=== PATIENT | male | born 1955 | race Caucasian/White ===

== ENCOUNTER 2024-07-30 13:20 | Inpatient (IN) ==
--- NOTE | 2024-07-30 13:39 | ED Triage Note ---
Date of Service July 30, 2024 Provider in Triage Author: Rachid Moise History of Present Illness This patient was briefly evaluated while in triage. An abbreviated physical exam was performed. This patient is a 69-year-old Male who presents to the ED for evaluation of not feeling well, nausea and vomiting. The patient was watching television approximately 1 hour ago when symptoms developed. Patient did have some coffee and a burrito. reports that he then got up to walk, and seemed to be favoring his left side. He reports weakness all over. Physical Exam CONSTITUTIONAL: Healthy and well nourished. Alert and oriented X 3. GCS 15. Patient is diaphoretic. HEENT: Normocephalic, atraumatic. Pupils equal, round and reactive. No facial droop. No scleral icterus or conjunctival injection. NECK: Full active range of motion without discomfort. LYMPHATICS: No cervical chain adenopathy. RESPIRATORY: Clear to auscultation bilaterally with no wheezing, crackles, rhonchi or stridor. CARDIOVASCULAR: Regular rate and rhythm with no murmurs, rubs or gallops. GASTROINTESTINAL: Bowel sounds present in all quadrants. No focal abdominal tenderness to palpation. MUSCULOSKELETAL: Full range of motion of all joints without discomfort. INTEGUMENTARY: No rash or other significant dermatologic conditions noted. HEMATOLOGIC: No ecchymosis or petechiae. PSYCHIATRIC: Positive affect. NEUROLOGIC: No focal neurologic deficits noted. Initial orders for labs and / or imaging were placed and patient was placed in the waiting area until a bed is available. Please see further documentation for the full ED course.
[2024-07-30] MEDS: SODIUM CHLORIDE 0.9% 1,000 ML IV ONE (14:26)
[2024-07-30] MEDS: LABETALOL HCL IV 5 MG/ML 20ML IV STA ×2 (14:27→16:08)
[2024-07-30] MEDS: PROMETHAZINE 6.25 MG/50.25 ML BAG IV STA (14:28)
[2024-07-30] MEDS: ONDANSETRON INJ 2 MG/ML 2 ML VIAL IV STA (14:28)
[2024-07-30 14:31] LABS: Basophils # (auto) 0.08 K/uL (0.00-0.20); Basophils % (auto) 0.6 %; Eosinophils # (auto) 0.01 K/uL (0.00-0.50); Eosinophils % (auto) 0.1 %; Hematocrit (blood only) 42.7 % (42.0-52.0); Hemoglobin 14.3 g/dl (14.0-18.0); Immature Granulocytes % (auto) 1.5 %; Lymphocytes # (auto) 1.94 K/uL (1.20-3.40); Lymphocytes % (auto) 14.1 %; Mean Corpuscular Hgb Conc 33.5 g/dL (32.0-36.0); Mean Corpuscular Volume 89.7 fL (80.0-100.0); Mean Platelet Volume 8.5 fL (9.4-12.4); Monocytes % (auto) 5.1 %; Neutrophils % (auto) 78.6 %; Platelet Count 399 K/uL (130-400); RDW Coefficient of Variation 12.7 % (11.5-14.5); RDW Standard Deviation 41.6 fL (36.4-46.3); Red Blood Count 4.76 M/uL (4.70-6.10); White Blood Count 13.73 K/ul (4.8-10.8)
--- NOTE | 2024-07-30 14:33 | Emergency Department Note ---
Impression & Plan Hypertensive urgency, Vomiting, Weakness, Leukocytosis ED Provider Note NAME: IRENE ARDON Jr AGE: 69 SEX: M : 1955 ARRIVES VIA: Walk-In INFORMANT: [Patient][] ED PROVIDER(S): [Alexis Mullen MD] CHIEF COMPLAINT: Weakness HISTORY OF PRESENT ILLNESS: The patient is a 69-year-old male who presents to the ER with diffuse weakness that began about an hour and a half or so ago. He had felt fine earlier. He complains of nausea and has been vomiting. He has no headache or abdominal pain. He is not short of breath. No one-sided weakness. He was sweating as per his . He also seemed unsteady with walking. The patient did have [employer], he wonders if he may have food poisoning. The patient's blood pressure was quite high in triage. He does take blood pressure medications, he states he took his blood pressure medication today already. He states his blood pressure is usually relatively well-controlled. No history of previous CVA. PMHx/PSHx/Social Hx: See Below PHYSICAL EXAM: GENERAL: Patient is in moderate distress, vomiting and sweating. HEENT: No acute trauma, normocephalic atraumatic, mucous membranes moist, no nasal congestion. NECK: No stridor, no adenopathy, no meningismus, trachea is midline. LUNGS: Clear to auscultation bilaterally, no wheeze, no rhonchi, breath sounds equal. HEART: Without murmurs gallops or rubs, regular rate and rhythm. ABDOMEN: Soft, nontender, no peritonitis. EXTREMITIES: No cyanosis, full range of motion of all the joints without pain or difficulty. NEUROLOGIC: Oriented x 3, no acute motor or sensory deficits, no focal weakness. No speech slur or extremity deficit. No facial droop. SKIN: No jaundice, mild diaphoresis. DIFFERENTIAL DIAGNOSIS: Uncontrolled hypertension, stroke, intracranial bleeding, electrolyte disturbance, foodborne or viral illness, LA, among others. EMERGENCY DEPARTMENT PROCEDURES: MEDICAL DECISION MAKING: There is a mild leukocytosis, this could be consistent with infection or just his vomiting. There is a normal hemoglobin and platelet count. No coagulopathy. No renal failure or significant electrolyte abnormality. No concerning liver enzyme elevation. ECG showed a sinus rhythm, no acute ST elevation. Cardiac enzyme testing x 1 was not consistent with acute cardiac injury. Brain CT showed no acute bleed or mass effect. A potential old infarct was noted. CT angio of the head and neck were performed. Patient did have an intracranial area of stenosis, there was no clot/obstruction seen within the head or neck. On my exam, the patient was vomiting and quite hypertensive. There were no focal neurologic deficits. Stroke scale as per nursing was 0. The patient was aggressively managed as he was very hypertensive. He did receive IV Lopressor, a second dose of IV Lopressor was given. He was given IV Phenergan and IV Zofran. He was given 1 L of IV saline. The patient does seem to be improved, his blood pressure is improved. He was able to walk to the bathroom without difficulty. The patient is in need of a hospital stay. He appears to be suffering from a hypertensive urgency/emergency. Acute stroke is still in the differential I suppose and further workup such as MRI is warranted. I do not believe the patient is not a candidate for TNK as his blood pressure is so poorly controlled. On top of the markedly elevated blood pressure, his stroke scale currently is 0. I spoke with the patient, I spoke with case management, the on-call hospitalist was consulted. Prior/Outside records/notes reviewed: None ECG per my interpretation: Indication was hypertension. The ECG shows a sinus rhythm with some PACs. The rate is 82. There is no acute ST elevation, no PVCs. The QTc is 479. Continuous Cardiac Monitoring per my interpretation: An order was placed for continuous cardiac monitoring. The monitor shows a rate of 80 with normal sinus rhythm. Imaging/x-ray results per my interpretation: Chronic Medical/Social conditions affecting care: History of hypertension, advanced age. Care/Management discussed with: Case management, the on-call hospitalist. Level of care consideration(s): After review of the information above and other included data: --I believe the patient requires escalation of care to admission Critical Care Note: I have personally spent 41 minutes of critical care time in the direct management of this patient. This includes bedside care, interpretation of diagnostic studies, and testing, discussion with consultants, patient, and family members, and other required patient management activities. This 41 minutes is in excess of all separately billable procedures. DISPOSITION: Admission Past Med/Surg History Problem List Leukocytosis (Acute) Weakness (Acute) Vomiting (Acute) Hypertensive urgency (Acute) Hypertensive emergency Medical History HTN (hypertension) Surgical History (Updated 07/30/24 @ 18:54 by MAGGY Zavala) History of right hip replacement Social History Smoking Status: Unknown if ever smoked Hx Alcohol Use: Yes Alcohol type: beer Hx Substance Use: No Preferred Language: Burmese Communication Ability: Effective Field Nurse Required: No Beliefs That Will Affect Care: None Current Living Situation: Spouse Other Information That Helps Us Care for You: No Feels Safe at Home: Yes Safety Concerns: Feels Safe At This Time Assistive Devices: Glasses Allergies Allergies Allergy/AdvReac Type Severity Reaction Status Date / Time animal dander Allergy Severe Sneezing Unverified 07/30/24 17:15 Home Meds Home Medications Medication Instructions Recorded Confirmed Diatomaceous Earth 1 cap PO DAILY 07/30/24 07/30/24 amlodipine 5 mg tablet 5 mg PO QAM 07/30/24 07/30/24 Results & Data (ED) Vital Signs Vital Signs - 24 hr 07/30/24 13:37 07/30/24 14:04 07/30/24 14:27 Temperature 36.6 C Temperature Source Oral Pulse Rate 94 H 99 H 64 Pulse Rate [Right Finger] Respiratory Rate 20 Respiratory Effort / Characteristics Non-Labored Spontaneous Respiratory Depth Normal Respiratory Pattern Regular Blood Pressure 230/102 H 215/120 H Blood Pressure [Right Arm] Blood Pressure Mean 144 Blood Pressure Mean [Right Arm] Pulse Oximetry 93 Oxygen Delivery Method Room Air Sepsis Recent Fever Within 48 Hours No Sepsis New/Unexplained Change in Mental Status N/A Sepsis Action Taken by Nursing No Action Required 07/30/24 14:52 07/30/24 15:45 07/30/24 16:33 Temperature Temperature Source Pulse Rate 78 Pulse Rate [Right Finger] 94 H 76 Respiratory Rate 14 12 Respiratory Effort / Characteristics Non-Labored Spontaneous Non-Labored Spontaneous Respiratory Depth Normal Normal Respiratory Pattern Blood Pressure 174/95 H Blood Pressure [Right Arm] 178/118 H 194/114 H Blood Pressure Mean Blood Pressure Mean [Right Arm] 138 140 Pulse Oximetry 98 98 Oxygen Delivery Method Room Air Room Air Sepsis Recent Fever Within 48 Hours Sepsis New/Unexplained Change in Mental Status Sepsis Action Taken by Nursing 07/30/24 17:10 Temperature Temperature Source Pulse Rate Pulse Rate [Right Finger] 78 Respiratory Rate 14 Respiratory Effort / Characteristics Non-Labored Spontaneous Respiratory Depth Normal Respiratory Pattern Regular Blood Pressure Blood Pressure [Right Arm] 192/93 H Blood Pressure Mean Blood Pressure Mean [Right Arm] 126 Pulse Oximetry 96 Oxygen Delivery Method Room Air Sepsis Recent Fever Within 48 Hours Sepsis New/Unexplained Change in Mental Status Sepsis Action Taken by [facility] Medications Current Medication List: was personally reviewed by me Laboratory Data Attestation: I reviewed the patient's lab results. 07/30/24 13:54 07/30/24 13:54 Lab Results 07/30/24 Range/Units 13:54 WBC 13.73 H (4.8-10.8) K/ul RBC 4.76 (4.70-6.10) M/uL Hgb 14.3 (14.0-18.0) g/dl Hct 42.7 (42.0-52.0) % MCV 89.7 (80.0-100.0) fL MCH 30.0 (25.0-34.0) pg MCHC 33.5 (32.0-36.0) g/dL RDW Std Deviation 41.6 (36.4-46.3) fL RDW Coeff of Mulu 12.7 (11.5-14.5) % Plt Count 399 (130-400) K/uL MPV 8.5 L (9.4-12.4) fL Immature Gran % (Auto) 1.5 % Neut % (Auto) 78.6 % Lymph % (Auto) 14.1 % [place] % (Auto) 5.1 % Eos % (Auto) 0.1 % Baso % (Auto) 0.6 % Neut # (Auto) 10.80 H (1.40-6.50) K/uL Lymph # (Auto) 1.94 (1.20-3.40) K/uL [place] # (Auto) 0.70 H (0.11-0.59) K/uL Eos # (Auto) 0.01 (0.00-0.50) K/uL Baso # (Auto) 0.08 (0.00-0.20) K/uL Immature Gran # (Auto) 0.20 (0.01-0.20) K/uL PT 10.5 (9.0-12.0) Seconds INR 1.0 (0.9-1.1) APTT 23 (21-31) Seconds PTT Ratio 0.9 Sodium 138 (136-145) mmol/L Potassium 3.7 (3.5-5.1) mmol/L Chloride 103 (98-107) mmol/L Carbon Dioxide 24 (21-32) mmol/L Anion Gap 11 (3-11) BUN 17 (6-23) mg/dl Creatinine 0.95 (0.6-1.4) mg/dl Est Cr Clr Drug Dosing 78.3 ml/min Est GFR ( Amer) 93.0 ml/min Est GFR (Non-Af Amer) 80.2 ml/min BUN/Creatinine Ratio 17.9 (10-20) Glucose 137 H (70-99(Fasting)) mg/dl Calcium 9.8 (8.6-10.3) mg/dl Magnesium 2.1 (1.7-2.4) mg/dl Total Bilirubin 0.4 (0.2-1.0) mg/dl AST 19 (13-39) U/L ALT 19 (7-52) U/L Alkaline Phosphatase 54 (34-104) U/L Troponin I High Sens 3.8 (0-20) pg/ml Total Protein 8.1 (6.0-8.3) gm/dl Albumin 4.9 (3.4-5.0) gm/dl Globulin 3.2 (2.5-4.0) gm/dl Albumin/Globulin Ratio 1.5 (0.9-2) Administered Medications Promethazine HCl (Phenergan) 6.25 mg in 50.25 mls @ 201 mls/hr IV Q6H PRN PRN Reason: Nausea And Vomiting - 2nd line Stop: 08/29/24 20:48 Last Infusion: 07/30/24 21:33 Dose: Infused Documented By: Admin: 07/30/24 21:12 Dose: 201 mls/hr Documented By: ARSH Sodium Chloride (Nss) 1,000 mls @ 80 mls/hr IV .[id number] CRISPIN Stop: 08/29/24 20:59 Last Admin: 07/30/24 21:08 Dose: 80 mls/hr Documented By: ARSH Ondansetron HCl (Ondansetron Inj 2 Mg/Ml 2 Ml Vial) 4 mg IV Q6H PRN PRN Reason: Nausea And Vomiting - 1st line Stop: 08/29/24 18:24 Last Admin: 07/30/24 18:52 Dose: 4 mg Documented By: CARMELO Rosuvastatin Calcium (Rosuvastatin Calcium 20 Mg Tab) 20 mg PO QAM CRISPIN Stop: 08/29/24 20:14 Last Admin: 07/30/24 21:46 Dose: 20 mg Documented By: RNC Discontinued Medications Aspirin (Aspirin 325 Mg Ectab) 325 mg PO NOW STA Stop: 07/30/24 20:10 Last Admin: 07/30/24 21:45 Dose: 325 mg Documented By: RNSaran Clonidine HCl (Clonidine Hcl 0.1 Mg Tab) 0.1 mg PO NOW ONE Stop: 07/30/24 17:31 Last Admin: 07/30/24 18:01 Dose: Not Given Documented By: CARMELO Hydralazine HCl (Hydralazine Hcl 20 Mg/Ml Vial) 10 mg IV NOW STA Stop: 07/30/24 17:31 Last Admin: 07/30/24 18:01 Dose: Not Given Documented By: CARMELO Hydralazine HCl (Hydralazine Hcl 20 Mg/Ml Vial) 5 mg IV NOW ONE Stop: 07/30/24 18:34 Last Admin: 07/30/24 18:54 Dose: 5 mg Documented By: CARMELO Promethazine HCl (Phenergan) 6.25 mg in 50.25 mls @ 201 mls/hr IV NOW STA Stop: 07/30/24 14:30 Last Infusion: 07/30/24 15:01 Dose: Infused Documented By: Admin: 07/30/24 14:28 Dose: 201 mls/hr Documented By: JOANNA Sodium Chloride (Nss) 1,000 mls @ 999 mls/hr IV .Q1H1M ONE Stop: 07/30/24 15:18 Last Infusion: 07/30/24 15:40 Dose: Infused Documented By: Admin: 07/30/24 14:26 Dose: 999 mls/hr Documented By: JOANNA Ioversol (Optiray 320 125ml) 118 ml IV ONCE ONE Stop: 07/30/24 15:17 Last Admin: 07/30/24 15:17 Dose: 118 ml Documented By: LAURIE Labetalol HCl (Labetalol Hcl Iv 5 Mg/Ml 20ml) 10 mg IV NOW STA Stop: 07/30/24 14:17 Last Admin: 07/30/24 14:27 Dose: 10 mg Documented By: JOANNA Labetalol HCl (Labetalol Hcl Iv 5 Mg/Ml 20ml) 10 mg IV NOW STA Stop: 07/30/24 16:05 Last Admin: 07/30/24 16:08 Dose: 10 mg Documented By: CARMELO Ondansetron HCl (Ondansetron Inj 2 Mg/Ml 2 Ml Vial) 4 mg IV NOW STA Stop: 07/30/24 14:17 Last Admin: 07/30/24 14:28 Dose: 4 mg Documented By: JOANNA Imaging Data Radiologist's Impression: Head CT 07/30/24 14:16 CT OF THE HEAD WITHOUT CONTRAST CLINICAL HISTORY: neuro deficit, acute stroke suspected COMPARISON STUDY: No previous studies for comparison. TECHNIQUE: Helical axial images of the head were obtained without IV contrast. Automated exposure control was utilized for the study. A dose lowering technique was utilized adhering to the principles of ALARA. FINDINGS: This study is mildly compromised by motion artifact. White matter hypodensities favor small vessel disease. No acute intracranial hemorrhage, midline shift or mass effect is present. There is a 1.1 cm hypodense focus within the left caudate body. The ventricular system is unremarkable. The basal cisterns are patent. No extra-axial collections are present. There are no findings to suggest acute dural sinus thrombosis or acute territorial infarct. No significant calvarial abnormalities are present. Visualized portions of the sinuses and mastoid air cells are clear. IMPRESSION: 1. No acute intracranial hemorrhage. No mass effect. 2. 1.1 cm hypodense focus within the left caudate body. This is suggestive of a small age indeterminate infarct. ACT 112: Negative or not required by law. Electronically signed by: Ruy He M.D. 07/30/2024 3:31 PM Head CTA 07/30/24 14:16 CTA ANGIOGRAPHY OF THE HEAD CLINICAL HISTORY: neuro deficit, acute stroke suspected COMPARISON STUDY: No previous studies for comparison. TECHNIQUE: Helical axial images of the head were obtained following uneventful intravenous administration of 118 cc of Optiray. Sagittal and coronal reconstructions were viewed as well as maximal intensity projections on an independent 3-D workstation. Automated exposure control was utilized for the study. A dose lowering technique was utilized adhering to the principles of ALARA. CT DOSE: 1980.43 mGy.cm FINDINGS: No acute intracranial hemorrhage, midline shift or mass effect is present. Ventricular system is normal. Basal cisterns are patent. There are no extra-axial collections. The bilateral M1, M2, A1 and A2 segments are patent. There is mild plaque within the cavernous carotids without stenosis. There is no large vessel occlusion. There is no intracranial aneurysm. Severe short segment stenosis of the left P2 segment is noted. IMPRESSION: 1. No large vessel occlusion. No intracranial aneurysm. 2. 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 No additional stenoses. ACT 112: Negative or not required by law. Electronically signed by: Ruy He M.D. 07/30/2024 3:37 PM Neck CTA 07/30/24 14:16 CT ANGIOGRAPHY OF THE NECK WITH CONTRAST CLINICAL HISTORY: neuro deficit, acute stroke suspected COMPARISON STUDY: No previous studies for comparison. Technique: CT angiography of the carotid and vertebral arteries was obtained using Optiray and 3D reconstruction on an independent workstation. NASCET criteria was utilized. Automated exposure control was utilized for the study. A dose lowering technique was utilized adhering to the principles of ALARA. Findings: Visualized portions of the lung apices are unremarkable. There is no cervical lymphadenopathy or cervical spine fracture. The bilateral common carotid, cervical internal carotid and vertebral arteries are patent. There is no stenosis or dissection within these vessels. There is minimal plaque within proximal bilateral internal carotid arteries. There is no aneurysm within the neck. Vertebral arteries are patent. IMPRESSION: No stenosis or dissection within the bilateral common carotid, cervical internal carotid or vertebral arteries. ACT 112: Negative or not required by law. Electronically signed by: Ruy He M.D. 07/30/2024 3:34 PM Discharge Plan Visit Data Chief Complaint: Weakness Stated Complaint: WEAK, DIZZY, NOT FEELING WELL OVERALL ED Provider: Alexis Mullen Discharge Problem: Hypertensive urgency, Vomiting, Weakness, Leukocytosis Patient Disposition: Admitted As Inpatient Condition: Serious Discharge Instructions Interventions: ED Discharge Assessment Last Done: 07/30/24 19:11 Discharge Problem: Vomiting Qualifiers: Vomiting type: unspecified Nausea presence: with nausea Qualified Code(s): R 11.2 - Nausea with vomiting, unspecified Leukocytosis Qualifiers: Leukocytosis type: unspecified Qualified Code(s): D72.829 - Elevated white blood cell count, unspecified
[2024-07-30 14:56] LABS: Albumin Globulin Ratio 1.5 (0.9-2); Albumin Level 4.9 gm/dl (3.4-5.0); BUN Creatinine Ratio 17.9 (10-20); Bilirubin,Total 0.4 mg/dl (0.2-1.0); Calcium 9.8 mg/dl (8.6-10.3); Creatinine Clr Calc Pharmacy 78.3 ml/min; Est GFR (Non-African American) 80.2 ml/min; Globulin 3.2 gm/dl (2.5-4.0); Magnesium 2.1 mg/dl (1.7-2.4); Potassium 3.7 mmol/L (3.5-5.1); Total Protein 8.1 gm/dl (6.0-8.3)
[2024-07-30 15:02] LABS: Troponin I High Sensitivity 3.8 pg/ml (0-20)
[2024-07-30 15:13] LABS: Partial Thromboplastin Ratio 0.9; Partial Thromboplastin Time 23 Seconds (21-31); Prothrombin Time 10.5 Seconds (9.0-12.0)
[2024-07-30] MEDS: OPTIRAY 320 125ml IV ONE (15:17)
--- NOTE | 2024-07-30 15:34 | CT Scan Report ---
CT OF THE HEAD WITHOUT CONTRAST CLINICAL HISTORY: neuro deficit, acute stroke suspected COMPARISON STUDY: No previous studies for comparison. TECHNIQUE: Helical axial images of the head were obtained without IV contrast. Automated exposure con trol was utilized for the study. A dose lowering technique was utilized adhering to the principles o f ALARA. FINDINGS: This study is mildly compromised by motion artifact. White matter hypodensities favor small vessel disease. No acute intracranial hemorrhage, midline shift or mass effect is present. There is a 1.1 cm hypodense focus within the left caudate body. The ventricular system is unremarkable. The ba slim cisterns are patent. No extra-axial collections are present. There are no findings to suggest acu te dural sinus thrombosis or acute territorial infarct. No significant calvarial abnormalities are pr esent. Visualized portions of the sinuses and mastoid air cells are clear. IMPRESSION: 1. No acute intracranial hemorrhage. No mass effect. 2. 1.1 cm hypodense focus within the left caudate body. This is suggestive of a small age indetermina te infarct. ACT 112: Negative or not required by law. Electronically signed by: Ruy He M.D. 07/30/2024 3:31 PM
--- NOTE | 2024-07-30 15:36 | CT Scan Report ---
CT ANGIOGRAPHY OF THE NECK WITH CONTRAST CLINICAL HISTORY: neuro deficit, acute stroke suspected COMPARISON STUDY: No previous studies for comparison. Technique: CT angiography of the carotid and vertebral arteries was obtained using Optiray and 3D rec onstruction on an independent workstation. NASCET criteria was utilized. Automated exposure control was utilized for the study. A dose lowering technique was utilized adhering to the principles of ALA RA. Findings: Visualized portions of the lung apices are unremarkable. There is no cervical lymphadenopat hy or cervical spine fracture. The bilateral common carotid, cervical internal carotid and vertebral arteries are patent. There is no stenosis or dissection within these vessels. There is minimal plaque within proximal bilateral internal carotid arteries. There is no aneurysm within the neck. Vertebral arteries are patent. IMPRESSION: No stenosis or dissection within the bilateral common carotid, cervical internal carotid or vertebral arteries. ACT 112: Negative or not required by law. Electronically signed by: Ruy He M.D. 07/30/2024 3:34 PM
--- NOTE | 2024-07-30 15:39 | CT Scan Report ---
CTA ANGIOGRAPHY OF THE HEAD CLINICAL HISTORY: neuro deficit, acute stroke suspected COMPARISON STUDY: No previous studies for comparison. TECHNIQUE: Helical axial images of the head were obtained following uneventful intravenous administr ation of 118 cc of Optiray. Sagittal and coronal reconstructions were viewed as well as maximal inten sity projections on an independent 3-D workstation. Automated exposure control was utilized for the study. A dose lowering technique was utilized adhering to the principles of ALARA. CT DOSE: 1980.43 mGy.cm FINDINGS: No acute intracranial hemorrhage, midline shift or mass effect is present. Ventricular syst em is normal. Basal cisterns are patent. There are no extra-axial collections. The bilateral M1, M2, A1 and A2 segments are patent. There is mild plaque within the cavernous carotids without stenosis. T here is no large vessel occlusion. There is no intracranial aneurysm. Severe short segment stenosis o f the left P2 segment is noted. IMPRESSION: 1. No large vessel occlusion. No intracranial aneurysm. 2. 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 No additional stenoses. ACT 112: Negative or not required by law. Electronically signed by: Ruy He M.D. 07/30/2024 3:37 PM
[2024-07-30] MEDS: hydrALAZINE HCL 20 MG/ML VIAL IV STA (18:01)
[2024-07-30] MEDS: cloNIDine HCL 0.1 MG TAB PO ONE (18:01)
[2024-07-30] MEDS: ONDANSETRON INJ 2 MG/ML 2 ML VIAL IV PRN (18:52)
[2024-07-30] MEDS: hydrALAZINE HCL 20 MG/ML VIAL IV ONE (18:54)
--- NOTE | 2024-07-30 19:02 | History & Physical Report ---
Date of Service July 30, 2024 Assessment & Plan (1) Hypertensive emergency: Plan: Admit to PCU Patient visiting from out of the area and presented for evaluation of nausea, vomiting, and generally not feeling well. BP on presentation 230/102, received Labetalol 10mg IV x [address] - 1.1 cm hypodense focus within the left caudate body. This is suggestive of a small age indeterminate infarct. Patient previously on amlodipine 5mg but stopped one month ago as he states his BP was "good" Due to possible CVA, goal BP 180 Brain MRI, echo Further BP management once brain MRI resulted Neuro consult DVT PROPHYLAXIS SCDs Patient seen in collaboration with Dr. Olivia. I spent a total of 75 minutes coordinating, documenting, and providing care for this patient excluding time spent in the performance of separately billed services. This included personally reviewing all current laboratories and imaging studies, medication reconciliation, outpatient chart review, and discussion with specialists. History of Present Illness Chief Complaint: Nausea, Vomiting, Generally Ill Primary Care Provider: NO PCP 69 year old male with PMH HTN, and other problems listed below who presented to the ED for evaluation of nausea, vomiting, and generally not feeling well. Patient is visiting from out of state. States that he was at his daughter's softball game this afternoon when he started to generally not feel well. He was diaphoretic. Upon arrival to the ED while in the waiting room, patient had several episodes of vomiting. He was found to be significantly hypertensive with BP 230/102. Patient denies chest pain and shortness of breath. No other recent illnesses, fevers, chills. He denies abdominal pain. No urinary symptoms. Head CT shows 1.1 cm hypodense focus within the left caudate body. This is suggestive of a small age indeterminate infarct. Patient was given labetalol 10 mg IV x 2 doses. He also received IVF, IV Zofran, IV promethazine. Allergies Allergy/AdvReac Type Severity Reaction Status Date / Time animal dander Allergy Severe Sneezing Unverified 07/30/24 17:15 Home Medications Medication Instructions Recorded Confirmed Type Diatomaceous Earth 1 cap PO DAILY 07/30/24 07/30/24 History amlodipine 5 mg tablet 5 mg PO QAM 07/30/24 07/30/24 History Past Med/Surg History Problem List (Updated 07/30/24 @ 22:40 by Alexis Mullen MD) Leukocytosis (Acute) Weakness (Acute) Vomiting (Acute) Hypertensive urgency (Acute) Hypertensive emergency Medical History (Updated 07/30/24 @ 22:40 by Alexis Mullen MD) HTN (hypertension) Surgical History (Updated 07/30/24 @ 18:54 by MAGGY Zavala) History of right hip replacement Social History Smoking Status: Unknown if ever smoked Hx Alcohol Use: Yes Alcohol type: beer Hx Substance Use: No Preferred Language: Bengali Communication Ability: Effective Irrigating Pump Operator Required: No Beliefs That Will Affect Care: None Current Living Situation: Spouse Other Information That Helps Us Care for You: No Feels Safe at Home: Yes Safety Concerns: Feels Safe At This Time Assistive Devices: Glasses Review of Systems Review of Systems: ROS per HPI, all other systems reviewed and negative Physical Exam Constitutional: WD/WN, vitals as above + ill appearing; no acute distress Eyes: PERRL, conjunctivae normal, anicteric sclerae ENMT: external ear and nose normal, oropharynx normal Respiratory: normal respiratory effort, lungs clear to auscultation Cardiovascular: Rate/Rhythm: regular rate and regular rhythm Vessels: normal peripheral pulses Extremities: no edema Gastrointestinal (Abdomen): normal bowel sounds, soft, nontender, no hepatosplenomegaly Musculoskeletal: no cyanosis or clubbing, extremities motor strength 5/5 Skin: no rashes, warm and dry Neurologic: PERRL, EOMI, accommodation nl, no face palsy, no dysarthria Psychiatric: Orientation: oriented x 3 eyes closed mostly throughout exam, provides short one word answers, arouses easily to verbal stimuli Results & Data Results & Data Vital Signs (Past 12 Hours) Vital Signs Temp Pulse Pulse Resp BP BP Pulse Ox 07/30/24 18:26 74 20 181/96 H 96 07/30/24 17:58 16 177/111 H 07/30/24 17:10 78 14 192/93 H 96 07/30/24 16:33 76 12 194/114 H 98 07/30/24 15:45 94 H 14 178/118 H 98 07/30/24 14:52 78 174/95 H 07/30/24 14:27 64 215/120 H 07/30/24 14:04 99 H 07/30/24 13:37 36.6 C 94 H 20 230/102 H 93 O2 Del Method 07/30/24 18:26 Room Air 07/30/24 17:58 Room Air 07/30/24 17:10 Room Air 07/30/24 16:33 Room Air 07/30/24 15:45 Room Air 07/30/24 14:52 07/30/24 14:27 07/30/24 14:04 07/30/24 13:37 Room Air Laboratory Results Short CBC 07/30/24 Range/Units 13:54 WBC 13.73 H (4.8-10.8) K/ul Hgb 14.3 (14.0-18.0) g/dl Hct 42.7 (42.0-52.0) % Plt Count 399 (130-400) K/uL BMP 07/30/24 13:54 Sodium 138 Potassium 3.7 Chloride 103 Carbon Dioxide 24 BUN 17 Creatinine 0.95 Glucose 137 H Calcium 9.8 Liver Function 07/30/24 Range/Units 13:54 Total Bilirubin 0.4 (0.2-1.0) mg/dl AST 19 (13-39) U/L ALT 19 (7-52) U/L Alkaline Phosphatase 54 (34-104) U/L Albumin 4.9 (3.4-5.0) gm/dl Diagnostic Findings Head CT 07/30/24 14:16 CT OF THE HEAD WITHOUT CONTRAST CLINICAL HISTORY: neuro deficit, acute stroke suspected COMPARISON STUDY: No previous studies for comparison. TECHNIQUE: Helical axial images of the head were obtained without IV contrast. Automated exposure control was utilized for the study. A dose lowering technique was utilized adhering to the principles of ALARA. FINDINGS: This study is mildly compromised by motion artifact. White matter hypodensities favor small vessel disease. No acute intracranial hemorrhage, midline shift or mass effect is present. There is a 1.1 cm hypodense focus within the left caudate body. The ventricular system is unremarkable. The basal cisterns are patent. No extra-axial collections are present. There are no findings to suggest acute dural sinus thrombosis or acute territorial infarct. No significant calvarial abnormalities are present. Visualized portions of the sinuses and mastoid air cells are clear. IMPRESSION: 1. No acute intracranial hemorrhage. No mass effect. 2. 1.1 cm hypodense focus within the left caudate body. This is suggestive of a small age indeterminate infarct. ACT 112: Negative or not required by law. Electronically signed by: Ruy He M.D. 07/30/2024 3:31 PM Head CTA 07/30/24 14:16 CTA ANGIOGRAPHY OF THE HEAD CLINICAL HISTORY: neuro deficit, acute stroke suspected COMPARISON STUDY: No previous studies for comparison. TECHNIQUE: Helical axial images of the head were obtained following uneventful intravenous administration of 118 cc of Optiray. Sagittal and coronal reconstructions were viewed as well as maximal intensity projections on an [employer] 3-D workstation. Automated exposure control was utilized for the study. A dose lowering technique was utilized adhering to the principles of ALARA. CT DOSE: 1980.43 mGy.cm FINDINGS: No acute intracranial hemorrhage, midline shift or mass effect is present. Ventricular system is normal. Basal cisterns are patent. There are no extra-axial collections. The bilateral M1, M2, A1 and A2 segments are patent. There is mild plaque within the cavernous carotids without stenosis. There is no large vessel occlusion. There is no intracranial aneurysm. Severe short segment stenosis of the left P2 segment is noted. IMPRESSION: 1. No large vessel occlusion. No intracranial aneurysm. 2. 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 No additional stenoses. ACT 112: Negative or not required by law. Electronically signed by: Ruy He M.D. 07/30/2024 3:37 PM Neck CTA 07/30/24 14:16 CT ANGIOGRAPHY OF THE NECK WITH CONTRAST CLINICAL HISTORY: neuro deficit, acute stroke suspected COMPARISON STUDY: No previous studies for comparison. Technique: CT angiography of the carotid and vertebral arteries was obtained using Optiray and 3D reconstruction on an independent workstation. NASCET criteria was utilized. Automated exposure control was utilized for the study. A dose lowering technique was utilized adhering to the principles of ALARA. Findings: Visualized portions of the lung apices are unremarkable. There is no cervical lymphadenopathy or cervical spine fracture. The bilateral common carotid, cervical internal carotid and vertebral arteries are patent. There is no stenosis or dissection within these vessels. There is minimal plaque within proximal bilateral internal carotid arteries. There is no aneurysm within the neck. Vertebral arteries are patent. IMPRESSION: No stenosis or dissection within the bilateral common carotid, cervical internal carotid or vertebral arteries. ACT 112: Negative or not required by law. Electronically signed by: Ruy He M.D. 07/30/2024 3:34 PM Code Status & VTE Plan VTE Prophylaxis Plan VTE Prophylaxis will be ordered: Yes Supervising Physician Co-Signing Physician Notes Pt was seen and examined by myself, Erna Olivia MD on the day of service. Care was coordinated with MAGGY Zavala. 69-year-old gentleman presenting from [place] of state with concern for intractable nausea and vomiting, fatigue and generalized malaise. at bedside, notes that since he has been in the ED he has had about 15 episodes of emesis Blood pressure has been significantly elevated in the range of hypertensive emergency. Patient denies changes to vision or headache. states he has not taken his home blood pressure medication for about 3 weeks. On exam alert and oriented, some slight slurring of speech, strength intact bilaterally. Head CT noting an old caudate infarct, brain MRI subsequently showing acute to subacute strokes in the cerebellum. Will allow permissive hypertension, patient previously received IV labetalol 10 mg x 2 and IV hydralazine 5 mg for persistent elevated blood pressure. Neurology consult, recs appreciated. Started on aspirin, statin for intractable nausea vomiting patient has Zofran first-line, IV Phenergan second line. Possibly in setting of acute stroke and elevated blood pressure KUB ordered for further workup, consider further imaging with CT if persistent. follow-up KUB. Of note Case was discussed with ICU provider for possible transfer to the ICU. Advised permissive hypertension with use of IV hydralazine and clonidine as needed. Otherwise as above. I spent a total [id number] coordinating, documenting, and providing care for this patient excluding time spent in the performance of separately billed services
--- NOTE | 2024-07-30 19:38 | Magnetic Resonance Report ---
MRI OF THE BRAIN WITHOUT CONTRAST CLINICAL HISTORY: Stroke. COMPARISON STUDY: Head CT and CTA of the head performed earlier today. TECHNIQUE: Utilizing a 1.5 Jennifer magnet and dedicated coil, multiplanar, multiecho imaging of the bra in was performed without IV contrast. FINDINGS: Several small clustered foci of restricted diffusion within the right cerebellar hemisphere that measure up to 7 mm. These are hypointense on the ADC sequence. There is mild associated corresp onding T2 hyperintensity. There is no mass effect. There is no acute intracranial hemorrhage. No jono tional foci of restricted diffusion are present. Ventricular system is unremarkable. Basal cisterns a re patent. There are no extra axial collections. An old old left caudate body infarct measures 1 cm. Calvarial signal is normal. There is no evidence for sinusitis. IMPRESSION: 1. Several small clustered foci of restricted diffusion within the right cerebellar hemisphere consis tent with acute to subacute infarcts. No mass effect. No hemorrhage. 2. 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 ACT 112: Negative or not required by law. Electronically signed by: Ruy He M.D. 07/30/2024 7:36 PM
[2024-07-30] MEDS ORDERED: PHARMACIST DISCHARGE MED REC CONSULT PRN (19:57)
[2024-07-30] MEDS ORDERED: ACETAMINOPHEN 325 MG TAB PO PRN (19:57)
[2024-07-30] MEDS: SODIUM CHLORIDE 0.9% 1,000 ML IV SCH (21:08)
[2024-07-30] MEDS: PROMETHAZINE 6.25 MG/50.25 ML BAG IV PRN (21:12)
[2024-07-30] MEDS: ASPIRIN 325 MG ECTAB PO STA (21:45)
[2024-07-30] MEDS: ROSUVASTATIN CALCIUM 20 MG TAB PO SCH (21:46)
[2024-07-31 06:56] LABS: Basophils # (auto) 0.01 K/uL (0.00-0.20); Basophils % (auto) 0.1 %; Hematocrit (blood only) 40.1 % (42.0-52.0); Hemoglobin 13.3 g/dl (14.0-18.0); Immature Granulocytes # (auto) 0.06 K/uL (0.01-0.20); Immature Granulocytes % (auto) 0.5 %; Lymphocytes # (auto) 1.56 K/uL (1.20-3.40); Lymphocytes % (auto) 11.9 %; Mean Corpuscular Hemoglobin 29.5 pg (25.0-34.0); Mean Corpuscular Hgb Conc 33.2 g/dL (32.0-36.0); Mean Corpuscular Volume 88.9 fL (80.0-100.0); Mean Platelet Volume 8.7 fL (9.4-12.4); Monocytes # (auto) 0.45 K/uL (0.11-0.59); Monocytes % (auto) 3.4 %; Neutrophils # (auto) 11.03 K/uL (1.40-6.50); Neutrophils % (auto) 84.1 %; Platelet Count 336 K/uL (130-400); RDW Coefficient of Variation 12.8 % (11.5-14.5); RDW Standard Deviation 41.6 fL (36.4-46.3); Red Blood Count 4.51 M/uL (4.70-6.10); White Blood Count 13.11 K/ul (4.8-10.8)
[2024-07-31 07:16] LABS: Albumin Globulin Ratio 1.4 (0.9-2); Albumin Level 4.3 gm/dl (3.4-5.0); BUN Creatinine Ratio 23.1 (10-20); Bilirubin,Total 0.4 mg/dl (0.2-1.0); Calcium 9.3 mg/dl (8.6-10.3); Chol HDL Ratio 5.1 (0-5); Creatinine Clr Calc Pharmacy 95.3 ml/min; Est GFR (African American) 105.3 ml/min; Est GFR (Non-African American) 90.8 ml/min; Phosphorus 3.2 mg/dl (2.5-4.9); Potassium 3.9 mmol/L (3.5-5.1); Total Protein 7.3 gm/dl (6.0-8.3)
--- NOTE | 2024-07-31 07:46 | XRay Report ---
KUB HISTORY: Acute nausea nausea and persistent vomitting COMPARISON: None. FINDINGS: Nonobstructive bowel gas pattern. Contrast noted within the urinary bladder lumen. Renal sh adows are obscured by bowel gas. No renal calculi. No ureteral calculi. No pneumoperitoneum or pneum atosis. Right hip arthroplasty. Moderate left hip osteoarthritis. No fracture. IMPRESSION: Nonobstructive bowel gas pattern. ACT 112: Negative or not required by law. The above report was generated using voice recognition software. It may contain grammatical, syntax o r spelling errors. Electronically signed by: Ismael Allan M.D. 07/31/2024 7:45 AM
[2024-07-31 07:49] LABS: Estimated Average Glucose 117 mg/dl; Hemoglobin A1C 5.7 % (4.5-5.6)
[2024-07-31] MEDS: ASPIRIN 81 MG ECTAB PO SCH (08:24)
--- NOTE | 2024-07-31 13:36 | Hospitalist Progress Note ---
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 Prediabetes Patient presented with nausea, vomiting, fatigue, generalized malaise and blood pressure was significantly elevated at 230/102 at presentation. Admitting imagings: CT head: No acute finding of hemorrhage or mass effect. 1.1 cm hypodense focus within the left caudate body , small age indeterminant infarct. CT head: No large vessel occlusion, no intracranial aneurysm. 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 Neck CTA: No stenosis or dissection within the bilateral common carotid, cervical internal carotid or vertebral arteries. Brain MRI: Several small clustered foci of restricted diffusion within the right cerebellar hemisphere consistent with acute to subacute infarcts. 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 KUB x-ray: Nonobstructive bowel gas pattern Blood pressure has been coming down slowly, currently in 160s over 80s. Will initiate his home amlodipine, patient not interested in initiating losartan. Prn BP meds on board. A1c of 5.7, patient and his counseled regarding lifestyle modification and need for follow-up with PCP and repeat A1c in 3 months. LDL of 190, patient has been started on rosuvastatin which he has been taking. Patient has been declining aspirin, has been counseled in depth, he is aware that the risks of stroke is higher if he does not take antiplatelets. Add plavix, initiate dvt px. PT/OT/speech eval pending Neuro eval pending Now that nausea and vomiting is improving and patient is on full liquid diet, discontinue IV fluid. continue to monitor. DVT Px: hep sc PT/OT/Speech eval pending. CM to assist w/ dc plan. Full Code. Admission and Anticipated Discharge Date Admission Date: July 30, 2024 Subjective Patient was seen and examined at bedside. Patient was lying in bed, on room air, NAD, resting comfortably. Patient reports improvement in his nausea and vomiting, denies pain. We discussed the need for aspirin and statin therapy, patient has refused aspirin. We also discussed the need for blood pressure management especially with losartan given his prediabetes. Patient has been advised to pursue lifestyle modification including healthy diet/exercise regimen/weight loss to help prevent/delay diabetes in future. He voiced understanding. Answered all his questions. At the end, he wanted me to update above things to his as well. His Meri was also given a phone call and updated regarding the need for medications and the significance of those medications. She voiced understanding. Physical Exam Physical Exam: Constitutional: WD/WN, vitals as a mark + ill appear ing; no acute dist ress Eyes: PERRL, conjunctiva e normal, anicteri c sclerae ENMT: external ear and n ose normal, oropha rynx normal Respiratory: normal respiratory effort, lungs alisa ar to auscultation Cardiovascular: Rate/Rhythm: regul ar rate and regula r rhythm Vessels: normal peripheral pulses Extremiti es: no edema Gastrointestinal ( Abdomen): normal bowel sound s, soft, nontender , no hepatosplenom egaly Musculoskeletal: no cyanosis or clu bbing, extremities motor strength 5/ 5 Skin: no rashes, warm an d dry Neurologic: PERRL, EOMI, accom modation nl, no fa ce palsy, no dysar thria Psychiatric: Orientation: ludmila valles x 3 Results & Data Results & Data Vital Signs (Past 12 Hours) Vital Signs Temp Pulse Pulse Resp BP Pulse Ox O2 Del Method 07/31/24 11:10 36.8 C 77 169/81 H 18 L Room Air 07/31/24 07:50 99 H 07/31/24 07:27 37.0 C 88 18 168/81 H 95 Room Air 07/31/24 02:49 36.5 C 74 18 175/82 H 94 Room Air
--- NOTE | 2024-07-31 14:24 | Neurology Consultation ---
Date of Consultation July 31, 2024 Assessment & Plan (1) Acute ischemic stroke: Recommend continued stroke work up to include the following: Recommend meclizine & low dose diazepam for continued NV/vertiginous symptoms Echocardiogram as part of complete stroke workup Continue frequent neurological assessments Obtain stat CT brain without contrast for any acute neurological decline Continue to monitor/control blood pressure & blood glucose Continue to monitor telemetry closely Recommend ZioPatch at DC if no evidence arrhythmia during inpatient monitoring Continue to monitor renal and hepatic function, keep euvolemic Metabolic workup should include hgbA1c, fasting lipids, homocysteine, TSH, D Dimer, RPR, urinalysis Recommend DAPT for at least 3 weeks Recommend high dose statin therapy indefinitely if tolerated Ok from neurology perspective for VTE prophylaxis PT/OT/SLT to eval and treat Recommend outpatient polysomnography Telehealth Consultation Telehealth Information Telehealth Information: I performed this visit using a real-time telehealth connection between my location and the patients location ([facility]). After connecting through interactive tele-video, patient was identified by name and date of and/or wristband check.Patient (or authorized healthcare registration representative) was informed that this was a telemedicine visit and it was being conducted confidentially over secure lines. My office door was closed and no one else was present in the room with me.Patient (or authorized healthcare registration representative) provided consent to proceed with the visit, expressed an understanding of privacy and security of the telemedicine visit, and gave permission to have a hospital registration representative in the room in order to assist with the visit and to conduct portions of the visit, as needed. I informed the patient (or authorized healthcare registration representative) that I reviewed their record and presented the opportunity for them to ask any questions regarding the visit today. The patient agreed to participate. History of Present Illness Reason for Consultation: Stroke Requesting Physician: Dr Grimm Attending Physician: Thaddeus Grimm MD History of Present Illness 69yo male presented with complaint of dizziness N/V found to have cerebellar stroke. Notably arrived severely hypertensive. MRI brain reveals small areas of right cerebellar restricted diffusion. CTA head & neck reveals only concern of left PORTER BATH stenosis. I have performed televideo consultation. He is alert & oriented; able to answer all questions appropriately, name objects on televideo monitor, repeat phrases and perform complex/embedded commands without deficit. Neurological exam is non lateralizing/nonfocal in terms of motor strength. NIHSS= 1 for dysmetria. Patient has not participated with therapy yet due to ongoing dizziness. Feels symptoms worsen if trying to get up/OOB. Allergies Allergy/AdvReac Type Severity Reaction Status Date / Time animal dander Allergy Severe Sneezing Unverified 07/30/24 17:15 Home Medications Medication Instructions Recorded Confirmed Type Diatomaceous Earth 1 cap PO DAILY 07/30/24 07/30/24 History amlodipine 5 mg tablet 5 mg PO QAM 07/30/24 07/30/24 History Patient History Medical History HTN (hypertension) Surgical History (Updated 07/30/24 @ 18:54 by MAGGY Zavala) History of right hip replacement Social History Smoking Status: Unknown if ever smoked Hx Alcohol Use: Yes Alcohol type: beer Hx Substance Use: No Preferred Language: Lao Communication Ability: Effective Community Service Coordinator Required: No Beliefs That Will Affect Care: None Current Living Situation: Spouse Other Information That Helps Us Care for You: No Feels Safe at Home: Yes Safety Concerns: Feels Safe At This Time Assistive Devices: None Physical Exam Neurological Examination: Mental Status: Awake and alert. Oriented to person, place, and time. Fluency naming repetition and comprehension appear grossly intact. Affect remains appropriate. CN testing: I: Denies changes in ability to smell II:Reports no changes in visual acuity III/IV/: No evidence of gaze preference, hippus, nystagmus or roving eye movements V: Facial sensation reportedly grossly intact to light touch bilaterally VII: Facial movements appear without evidence of asymmetry VIII: Hearing appears grossly intact to loud voice bilaterally IX/X: Palate appears to elevate symmetrically XI: Shoulder shrug appears symmetric/ grossly intact bilaterally XII: Tongue protrudes midline without evidence of biting Motor exam: Strength appears grossly intact/symmetric in all extremities Sensory: Sensation is reportedly grossly intact throughout Coordination: Mild dysmetria BUE, unable to accurately assess LE Reflexes: Deferred Gait: Deferred Results & Data Vital Signs (Past 12 Hours) Vital Signs Temp Pulse Pulse Resp BP Pulse Ox O2 Del Method 07/31/24 11:10 36.8 C 77 18 169/81 H 96 Room Air 07/31/24 07:50 99 H 07/31/24 07:27 37.0 C 88 18 168/81 H 95 Room Air 07/31/24 02:49 36.5 C 74 18 175/82 H 94 Room Air Laboratory Results Abnormal lab results 07/30/24 07/31/24 Range/Units 13:54 05:45 WBC 13.73 H 13.11 H (4.8-10.8) K/ul RBC 4.51 L (4.70-6.10) M/uL Hgb 13.3 L (14.0-18.0) g/dl Hct 40.1 L (42.0-52.0) % MPV 8.5 L 8.7 L (9.4-12.4) fL Neut # (Auto) 10.80 H 11.03 H (1.40-6.50) K/uL [place] # (Auto) 0.70 H (0.11-0.59) K/uL BUN/Creatinine Ratio 23.1 H (10-20) Glucose 137 H 132 H (70-99(Fasting)) mg/dl Hemoglobin A1c 5.7 H (4.5-5.6) % Cholesterol 261 H (0-200) mg/dl Cholesterol/HDL Ratio 5.1 H (0-5) Diagnostic Findings Head CT 07/30/24 14:16 CT OF THE HEAD WITHOUT CONTRAST CLINICAL HISTORY: neuro deficit, acute stroke suspected COMPARISON STUDY: No previous studies for comparison. TECHNIQUE: Helical axial images of the head were obtained without IV contrast. Automated exposure control was utilized for the study. A dose lowering technique was utilized adhering to the principles of ALARA. FINDINGS: This study is mildly compromised by motion artifact. White matter hypodensities favor small vessel disease. No acute intracranial hemorrhage, midline shift or mass effect is present. There is a 1.1 cm hypodense focus within the left caudate body. The ventricular system is unremarkable. The basal cisterns are patent. No extra-axial collections are present. There are no findings to suggest acute dural sinus thrombosis or acute territorial infarct. No significant calvarial abnormalities are present. Visualized portions of the sinuses and mastoid air cells are clear. IMPRESSION: 1. No acute intracranial hemorrhage. No mass effect. 2. 1.1 cm hypodense focus within the left caudate body. This is suggestive of a small age indeterminate infarct. ACT 112: Negative or not required by law. Electronically signed by: Ruy He M.D. 07/30/2024 3:31 PM Head CTA 07/30/24 14:16 CTA ANGIOGRAPHY OF THE HEAD CLINICAL HISTORY: neuro deficit, acute stroke suspected COMPARISON STUDY: No previous studies for comparison. TECHNIQUE: Helical axial images of the head were obtained following uneventful intravenous administration of 118 cc of Optiray. Sagittal and coronal reconstructions were viewed as well as maximal intensity projections on an independent 3-D workstation. Automated exposure control was utilized for the study. A dose lowering technique was utilized adhering to the principles of ALARA. CT DOSE: 1980.43 mGy.cm FINDINGS: No acute intracranial hemorrhage, midline shift or mass effect is present. Ventricular system is normal. Basal cisterns are patent. There are no extra-axial collections. The bilateral M1, M2, A1 and A2 segments are patent. There is mild plaque within the cavernous carotids without stenosis. There is no large vessel occlusion. There is no intracranial aneurysm. Severe short segment stenosis of the left P2 segment is noted. IMPRESSION: 1. No large vessel occlusion. No intracranial aneurysm. 2. 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 No additional stenoses. ACT 112: Negative or not required by law. Electronically signed by: Ruy He M.D. 07/30/2024 3:37 PM Neck CTA 07/30/24 14:16 CT ANGIOGRAPHY OF THE NECK WITH CONTRAST CLINICAL HISTORY: neuro deficit, acute stroke suspected COMPARISON STUDY: No previous studies for comparison. Technique: CT angiography of the carotid and vertebral arteries was obtained using Optiray and 3D reconstruction on an independent workstation. NASCET criteria was utilized. Automated exposure control was utilized for the study. A dose lowering technique was utilized adhering to the principles of ALARA. Findings: Visualized portions of the lung apices are unremarkable. There is no cervical lymphadenopathy or cervical spine fracture. The bilateral common carotid, cervical internal carotid and vertebral arteries are patent. There is no stenosis or dissection within these vessels. There is minimal plaque within proximal bilateral internal carotid arteries. There is no aneurysm within the neck. Vertebral arteries are patent. IMPRESSION: No stenosis or dissection within the bilateral common carotid, cervical internal carotid or vertebral arteries. ACT 112: Negative or not required by law. Electronically signed by: Ruy He M.D. 07/30/2024 3:34 PM Brain MRI 07/30/24 17:59 MRI OF THE BRAIN WITHOUT CONTRAST CLINICAL HISTORY: Stroke. COMPARISON STUDY: Head CT and CTA of the head performed earlier today. TECHNIQUE: Utilizing a 1.5 Jennifer magnet and dedicated coil, multiplanar, multiecho imaging of the brain was performed without IV contrast. FINDINGS: Several small clustered foci of restricted diffusion within the right cerebellar hemisphere that measure up to 7 mm. These are hypointense on the ADC sequence. There is mild associated corresponding T2 hyperintensity. There is no mass effect. There is no acute intracranial hemorrhage. No additional foci of restricted diffusion are present. Ventricular system is unremarkable. Basal cisterns are patent. There are no extra axial collections. An old old left caudate body infarct measures 1 cm. Calvarial signal is normal. There is no evidence for sinusitis. IMPRESSION: 1. Several small clustered foci of restricted diffusion within the right cerebellar hemisphere consistent with acute to subacute infarcts. No mass effect. No hemorrhage. 2. 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 ACT 112: Negative or not required by law. Electronically signed by: Ruy He M.D. 07/30/2024 7:36 PM KUB X-Ray 07/30/24 20:49 KUB HISTORY: Acute nausea nausea and persistent vomitting COMPARISON: None. FINDINGS: Nonobstructive bowel gas pattern. Contrast noted within the urinary bladder lumen. Renal shadows are obscured by bowel gas. No renal calculi. No ureteral calculi. No pneumoperitoneum or pneumatosis. Right hip arthroplasty. Moderate left hip osteoarthritis. No fracture. IMPRESSION: Nonobstructive bowel gas pattern. ACT 112: Negative or not required by law. The above report was generated using voice recognition software. It may contain grammatical, syntax or spelling errors. Electronically signed by: Ismael Allan M.D. 07/31/2024 7:45 AM Medications Administered Home Medications Medication Instructions Recorded Confirmed Last Taken Diatomaceous Earth 1 cap PO DAILY 07/30/24 07/30/24 Unknown amlodipine 5 mg tablet 5 mg PO QAM 07/30/24 07/30/24 1 Week Ago ~07/23/24 Active Medications Generic Name Dose Route Start Last Admin Trade Name Freq PRN Reason Stop Dose Admin Aspirin 81 mg 07/31/24 09:00 07/31/24 08:24 Aspirin 81 Mg Ectab PO 08/30/24 08:59 Not Given QAM CRISPIN Promethazine HCl 6.25 mg in 50.25 mls @ 201 mls/hr 07/30/24 20:49 07/30/24 21:33 Phenergan IV 08/29/24 20:48 Infused Q6H PRN Infusion Nausea And Vomiting - 2nd line Ondansetron HCl 4 mg 07/30/24 18:25 07/31/24 04:10 Ondansetron Inj 2 Mg/Ml 2 Ml Vial IV 08/29/24 18:24 4 mg Q6H PRN Administration Nausea And Vomiting - 1st line Rosuvastatin Calcium 20 mg 07/30/24 20:15 07/31/24 12:17 Rosuvastatin Calcium 20 Mg Tab PO 08/29/24 20:14 Not Given QAM CRISPIN
[2024-07-31] MEDS ORDERED: diazePAM 2 MG TABLET PO PRN ×2 (14:33→15:22)
--- NOTE | 2024-07-31 14:44 | Pharmacy Report ---
- Date of Service July 31, 2024 - Pharmacy CVA/TIA Medication Review Medications to Prevent Stroke handout has been added to the patients discharge packet. Antiplatelet(s) * Aspirin EC 81mg daily * Clopidogrel 75mg daily * at least 3wks DAPT recommended per today's note from Neuro netsuite consultant Cholesterol * High intensity statin: rosuvastatin 20 mg daily DVT Prophylaxis * Heparin SQ (Neuro netsuite consultant commented okay to provide) Therapeutic Anticoagulation * No history of Afib/Aflutter noted Type 2 Diabetes * Patient does not have T2DM but does have A1c in the "prediabetes" range
[2024-07-31] MEDS: CLOPIDOGREL BISULFATE 75 MG TAB PO ONE (16:08)
[2024-07-31] MEDS: LABETALOL HCL IV 5 MG/ML 20ML IV PRN (16:35)
[2024-07-31] MEDS: MECLIZINE HCL 25 MG TAB PO PRN (17:51)
[2024-07-31] MEDS: HEPARIN SOD 5,000 UNIT/0.5 ML VIAL SQ SCH (20:12)
[2024-08-01 06:42] LABS: Basophils # (auto) 0.05 K/uL (0.00-0.20); Basophils % (auto) 0.5 %; Eosinophils # (auto) 0.11 K/uL (0.00-0.50); Eosinophils % (auto) 1.1 %; Hematocrit (blood only) 39.5 % (42.0-52.0); Hemoglobin 13.1 g/dl (14.0-18.0); Immature Granulocytes # (auto) 0.03 K/uL (0.01-0.20); Immature Granulocytes % (auto) 0.3 %; Lymphocytes # (auto) 3.09 K/uL (1.20-3.40); Mean Corpuscular Hgb Conc 33.2 g/dL (32.0-36.0); Mean Corpuscular Volume 90.6 fL (80.0-100.0); Mean Platelet Volume 8.5 fL (9.4-12.4); Monocytes # (auto) 0.66 K/uL (0.11-0.59); Monocytes % (auto) 6.6 %; Neutrophils # (auto) 6.03 K/uL (1.40-6.50); Neutrophils % (auto) 60.5 %; Platelet Count 305 K/uL (130-400); RDW Standard Deviation 42.6 fL (36.4-46.3); Red Blood Count 4.36 M/uL (4.70-6.10); White Blood Count 9.97 K/ul (4.8-10.8)
[2024-08-01 07:04] LABS: BUN Creatinine Ratio 24.2 (10-20); Calcium 9.3 mg/dl (8.6-10.3); Creatinine Clr Calc Pharmacy 78.3 ml/min; Est GFR (Non-African American) 80.2 ml/min; Magnesium 2.2 mg/dl (1.7-2.4); Phosphorus 2.8 mg/dl (2.5-4.9); Potassium 3.8 mmol/L (3.5-5.1)
[2024-08-01] MEDS: CLOPIDOGREL BISULFATE 75 MG TAB PO SCH (08:12)
[2024-08-01] MEDS: amLODIPine BESYLATE 5 MG TAB PO SCH (08:12)
[2024-08-01] MEDS: hydrALAZINE HCL 20 MG/ML VIAL IV STA (10:06)
[2024-08-01] MEDS: LOSARTAN POTASSIUM 50 MG TAB PO SCH (11:53)
--- NOTE | 2024-08-01 14:11 | Hospitalist Progress Note ---
Date of Service August 01, 2024 Assessment & Plan (1) Hypertensive emergency: Plan: Hypertensive emergency CVA Nausea, vomiting, fatigue: In the setting of acute to subacute CVA and HTN. Prediabetes Patient presented with nausea, vomiting, fatigue, generalized malaise and blood pressure was significantly elevated at 230/102 at presentation. Admitting imagings: CT head: No acute finding of hemorrhage or mass effect. 1.1 cm hypodense focus within the left caudate body , small age indeterminant infarct. CT head: No large vessel occlusion, no intracranial aneurysm. 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 Neck CTA: No stenosis or dissection within the bilateral common carotid, cervical internal carotid or vertebral arteries. Brain MRI: Several small clustered foci of restricted diffusion within the right cerebellar hemisphere consistent with acute to subacute infarcts. 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 KUB x-ray: Nonobstructive bowel gas pattern ECHO: EF of 55-60%, no interatrial shunt. mild concentric LVH. Blood pressure higher, started losartan after discussion w/ patient. Will continue to uptitrate. c/w home amlodipine. Prn BP meds on board. A1c of 5.7, patient and his counseled regarding lifestyle modification and need for follow-up with PCP and repeat A1c in 3 months. LDL of 190, patient has been started on rosuvastatin which he has been taking. c/w DAPT, avoid omeprazole while on plavix. Neuro evaled, appreciate recs. f/u w/ neuro on dc. c/w PT/OT eval. OT evaled, PT pending. Zio patch monitor as OP. and sleep studay as OP. DVT Px: hep sc PT/OT. CM to assist w/ dc plan. Will need placement. Full Code. total time spent : 55 minutes. Admission and Anticipated Discharge Date Admission Date: July 30, 2024 Subjective Patient was seen and examined at bedside. Patient was lying in bed, on room air, NAD, resting comfortably. Patient reports improvement in his nausea and vomiting, denies pain. He still has dizziness. Since patient was more alert today, we discussed again the importance of DAPT and statin and ongoing physical therapy in his case. He seemed to understand. He is agreeable to the treatment as of now. I called patient's over the phone and updated regarding patient's plan of care. Also reinforced the importance of DAPT and statin therapy and ongoing physical therapy. Also suggested that they follow-up with PCP and neurology upon discharge. They voiced understanding and were agreeable to plan of care. About 13 to 15 minutes were spent during phone conversation. Physical Exam Physical Exam: Constitutional: WD/WN, vitals as a mark + ill appear ing; no acute dist ress Eyes: PERRL, conjunctiva e normal, anicteri c sclerae ENMT: external ear and n ose normal, oropha rynx normal Respiratory: normal respiratory effort, lungs alisa ar to auscultation Cardiovascular: Rate/Rhythm: regul ar rate and regula r rhythm Vessels: normal peripheral pulses Extremiti es: no edema Gastrointestinal ( Abdomen): normal bowel sound s, soft, nontender , no hepatosplenom egaly Musculoskeletal: no cyanosis or clu bbing, extremities motor strength 5/ 5 Skin: no rashes, warm an d dry Neurologic: PERRL, EOMI, accom modation nl, no fa ce palsy, no dysar thria Psychiatric: Orientation: [facility] x 3 Results & Data Results & Data Vital Signs (Past 12 Hours) Vital Signs Temp Pulse Pulse Resp BP BP Pulse Ox 08/01/24 11:52 36.5 C 82 18 179/87 H 96 08/01/24 09:19 71 185/101 H 08/01/24 09:00 76 189/90 H 08/01/24 07:41 36.5 C 83 18 187/93 H 95 08/01/24 07:30 85 08/01/24 03:18 36.6 C 75 18 165/90 H 95 08/01/24 02:17 83 O2 Del Method 08/01/24 11:52 Room Air 08/01/24 09:19 08/01/24 09:00 08/01/24 07:41 Room Air 08/01/24 07:30 08/01/24 03:18 Room Air 08/01/24 02:17
--- NOTE | 2024-08-01 15:15 | Pharmacy Report ---
- Date of Service August 01, 2024 - Pharmacy CVA/TIA Medication Review Medications to Prevent Stroke handout has been added to the patients discharge packet. Antiplatelet(s) * Aspirin EC 81 mg PO qam * Clopidogrel 75 mg PO qam Cholesterol * High intensity statin: rosuvastatin 20 mg daily DVT Prophylaxis * Heparin SQ, SCD knee Therapeutic Anticoagulation * No history of Afib/Aflutter noted Type 2 Diabetes * Patient does not have prior history of T2DM. A1 c of 5.7% on 07/31/24. Per provider report, "patient and his counseled regarding lifestyle modification and need for follow-up with PCP and repeat A1c in 3 months". Initiation of diabetes medication, including those with proven CVD benefit will be deferred to their outpatient provider due to familiarity with risks/benefits of such therapies.
[2024-08-01] MEDS: hydrALAZINE HCL 20 MG/ML VIAL IV PRN (16:17)
--- NOTE | 2024-08-01 18:48 | Electrocardiogram Report ---
Test Reason : Blood Pressure : */* mmHG Vent. Rate : 82 BPM Atrial Rate : 82 BPM P-R Int : 190 ms QRS Dur : 86 ms QT Int : 410 ms P-R-T Axes : 58 28 35 degrees QTcB Int : 479 ms Sinus rhythm with Premature atrial complexes Prolonged QT No previous ECGs available Confirmed by Neri Waldron ([id number]) on 08/01/2024 6:48:16 PM Referred By: Confirmed By: Neri Waldron
[2024-08-02 06:42] LABS: Basophils # (auto) 0.05 K/uL (0.00-0.20); Basophils % (auto) 0.5 %; Eosinophils # (auto) 0.17 K/uL (0.00-0.50); Eosinophils % (auto) 1.7 %; Hematocrit (blood only) 42.1 % (42.0-52.0); Hemoglobin 13.6 g/dl (14.0-18.0); Immature Granulocytes # (auto) 0.05 K/uL (0.01-0.20); Immature Granulocytes % (auto) 0.5 %; Lymphocytes % (auto) 24.8 %; Mean Corpuscular Hemoglobin 29.4 pg (25.0-34.0); Mean Corpuscular Hgb Conc 32.3 g/dL (32.0-36.0); Mean Corpuscular Volume 90.9 fL (80.0-100.0); Mean Platelet Volume 8.5 fL (9.4-12.4); Monocytes # (auto) 0.57 K/uL (0.11-0.59); Monocytes % (auto) 5.6 %; Neutrophils # (auto) 6.76 K/uL (1.40-6.50); Neutrophils % (auto) 66.9 %; Platelet Count 312 K/uL (130-400); RDW Standard Deviation 43.3 fL (36.4-46.3); Red Blood Count 4.63 M/uL (4.70-6.10)
[2024-08-02 07:16] LABS: BUN Creatinine Ratio 24.4 (10-20); Calcium 9.1 mg/dl (8.6-10.3); Creatinine Clr Calc Pharmacy 90.7 ml/min; Est GFR (African American) 103.1 ml/min; Magnesium 2.1 mg/dl (1.7-2.4); Phosphorus 2.8 mg/dl (2.5-4.9); Potassium 3.7 mmol/L (3.5-5.1)
[2024-08-02] MEDS: DOCUSATE SODIUM 100 MG CAP PO SCH (11:36)
--- NOTE | 2024-08-02 15:08 | Hospitalist Progress Note ---
Date of Service August 02, 2024 Assessment & Plan (1) Hypertensive emergency: Plan: Hypertensive emergency CVA Nausea, vomiting, fatigue: In the setting of acute to subacute CVA and HTN. Prediabetes Patient presented with nausea, vomiting, fatigue, generalized malaise and blood pressure was significantly elevated at 230/102 at presentation. Admitting imagings: CT head: No acute finding of hemorrhage or mass effect. 1.1 cm hypodense focus within the left caudate body , small age indeterminant infarct. CT head: No large vessel occlusion, no intracranial aneurysm. 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 Neck CTA: No stenosis or dissection within the bilateral common carotid, cervical internal carotid or vertebral arteries. Brain MRI: Several small clustered foci of restricted diffusion within the right cerebellar hemisphere consistent with acute to subacute infarcts. 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 KUB x-ray: Nonobstructive bowel gas pattern ECHO: EF of 55-60%, no interatrial shunt. mild concentric LVH. Blood pressure higher, started losartan 08/01, will increase dose 08/02 as BP still higher. Will continue to uptitrate. c/w home amlodipine. Prn BP meds on board. A1c of 5.7, patient and his counseled at multiple occasions regarding lifestyle modification and need for follow-up with PCP and repeat A1c in 3 months. LDL of 190, patient has been started on rosuvastatin which he has been taking. c/w DAPT, avoid omeprazole while on plavix. Neuro evaled, appreciate recs. f/u w/ neuro on dc. c/w PT/OT eval. OT evaled, PT pending. Zio patch monitor as OP. and sleep studay as OP. DVT Px: hep sc PT/OT. CM to assist w/ dc plan. Will need placement. Full Code. total time spent : 55 minutes. Admission and Anticipated Discharge Date Admission Date: July 30, 2024 Subjective Patient was seen and examined at bedside. Patient was lying in bed, on room air, NAD, resting comfortably. Patient reports no nausea and vomiting, denies pain. He still has dizziness. Discussed about his BP getting better but need for uptitrating his current BP meds doses, he agreed. Physical Exam Physical Exam: Constitutional: WD/WN, vitals as a mark + ill appear ing; no acute dist ress Eyes: PERRL, conjunctiva e normal, anicteri c sclerae ENMT: external ear and n ose normal, oropha rynx normal Respiratory: normal respiratory effort, lungs alisa ar to auscultation Cardiovascular: Rate/Rhythm: regul ar rate and regula r rhythm Vessels: normal peripheral pulses Extremiti es: no edema Gastrointestinal ( Abdomen): normal bowel sound s, soft, nontender , no hepatosplenom egaly Musculoskeletal: no cyanosis or clu bbing, extremities motor strength 5/ 5 Skin: no rashes, warm an d dry Neurologic: PERRL, EOMI, accom modation nl, no fa ce palsy, no dysar thria Psychiatric: Orientation: [facility] x 3 Results & Data Results & Data Vital Signs (Past 12 Hours) Vital Signs Temp Pulse Pulse Resp BP BP Pulse Ox 08/02/24 11:46 36.6 C 71 20 150/91 H 96 08/02/24 10:28 71 160/91 H 08/02/24 09:24 72 173/92 H 08/02/24 08:09 36.6 C 78 18 184/92 H 97 08/02/24 08:00 79 O2 Del Method 08/02/24 11:46 Room Air 08/02/24 10:28 08/02/24 09:24 08/02/24 08:09 Room Air 08/02/24 08:00
[2024-08-02] MEDS: LOSARTAN POTASSIUM 50 MG TAB PO SCH (20:28)
[2024-08-03 03:25] VITALS: TEMP 97.5; O2SAT 97
[2024-08-03 07:56] VITALS: RESP 20
[2024-08-03] MEDS: POLYETHYLENE (MIRALAX) 17 GM PACK PO PRN (08:16)
[2024-08-03 08:39] LABS: Calcium 9.2 mg/dl (8.6-10.3); Magnesium 2.1 mg/dl (1.7-2.4); Potassium 3.7 mmol/L (3.5-5.1)
[2024-08-03 08:44] LABS: Creatinine Clr Calc Pharmacy 83.6 ml/min; Est GFR (African American) 99.7 ml/min; Phosphorus 3.5 mg/dl (2.5-4.9)
[2024-08-03] MEDS ORDERED: STROKE PATIENT DISCHARGE STA (10:47)
--- NOTE | 2024-08-03 10:51 | Discharge Summary ---
Date of Service August 03, 2024 Admission HPI Per Admitting Provider 69 year old male with PMH HTN, and other problems listed below who presented to the ED for evaluation of nausea, vomiting, and generally not feeling well. [place]. States that he was at his daughter's softball game this afternoon when he started to generally not feel well. He was diaphoretic. Upon arrival to the ED while in the waiting room, patient had several episodes of vomiting. He was found to be significantly hypertensive with BP 230/102. Patient denies chest pain and shortness of breath. No other recent illnesses, fevers, chills. He denies abdominal pain. No urinary symptoms. Head CT shows 1.1 cm hypodense focus within the left caudate body. This is suggestive of a small age indeterminate infarct. Patient was given labetalol 10 mg IV x 2 doses. He also received IVF, IV Zofran, IV promethazine. Admission Exam Per Admitting Provider Constitutional: WD/WN, vitals as above + ill appearing; no acute distressEyes: PERRL, conjunctivae normal, anicteric scleraeENMT: external ear and nose normal, oropharynx normalRespiratory: normal respiratory effort, lungs clear to auscultationCardiovascular: Rate/Rhythm: regular rate and regular rhythm Vessels: normal peripheral pulses Extremities: no edemaGastrointestinal (Abdomen): normal bowel sounds, soft, nontender, no hepatosplenomegaly Musculoskeletal: no cyanosis or clubbing, extremities motor strength 5/5Skin: no rashes, warm and dryNeurologic: PERRL, EOMI, accommodation nl, no face palsy, no dysarthriaPsychiatric: Orientation: oriented x 3 eyes closed mostly throughout exam, provides short one word answers, arouses easily to verbal stimuli Principal Diagnosis Hypertensive emergency Acute CVA Prediabetes Discharge Exam Constitutional: WD/WN, no acute distress, alert and awake Eyes: PERRL, conjunctivae normal, anicteric sclerae ENMT: external ear and nose normal, oropharynx normal Respiratory: normal respiratory effort, lungs clear to auscultation Cardiovascular: Rate/Rhythm: regular rate and regular rhythm Vessels: normal peripheral pulses Extremities: no edema Gastrointestinal (Abdomen): normal bowel sounds, soft, nontender, no hepatosplenomegaly Musculoskeletal: no cyanosis or clubbing, extremities motor strength 5/5 Skin: no rashes, warm and dry Neurologic: PERRL, EOMI, accommodation nl, no face palsy, no dysarthria Psychiatric: Orientation: oriented x 3 Discharge Data Allergies Allergy/AdvReac Type Severity Reaction Status Date / Time animal dander Allergy Severe Sneezing Unverified 07/30/24 17:15 Consultations 07/30/24 16:27 ED Decision to Admit Stat 07/30/24 19:57 Consult Neurology Routine 07/31/24 13:29 Consult Neurology Routine Ordered Studies 07/30/24 14:16 CT angio head w con Stat CT angio neck with con Stat CT head/brain wo con Stat 07/30/24 17:59 MR brain wo con Urgent Hospital Course (1) Hypertensive emergency: 69 yo M was managed for the following: Hypertensive emergency CVA Nausea, vomiting, fatigue: In the setting of acute to subacute CVA and HTN. Prediabetes Patient presented with nausea, vomiting, fatigue, generalized malaise and blood pressure was significantly elevated at 230/102 at presentation. Admitting imagings: CT head: No acute finding of hemorrhage or mass effect. 1.1 cm hypodense focus within the left caudate body , small age indeterminant infarct. CT head: No large vessel occlusion, no intracranial aneurysm. 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 Neck CTA: No stenosis or dissection within the bilateral common carotid, cervical internal carotid or vertebral arteries. Brain MRI: Several small clustered foci of restricted diffusion within the right cerebellar hemisphere consistent with acute to subacute infarcts. 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 KUB x-ray: Nonobstructive bowel gas pattern ECHO: EF of 55-60%, no interatrial shunt. mild concentric LVH. Blood pressure higher, started losartan 08/01, increases dose 08/02 as BP still higher. c/w home amlodipine. c/t uptitrate as OP w/ close f/u w/ PCP office. A1c of 5.7, patient and his counseled at multiple occasions regarding lifestyle modification and need for follow-up with PCP and repeat A1c in 3 ben hs. LDL of 190, patient has been started on rosuvastatin which he has been taking. c/w DAPT, avoid omeprazole while on plavix. Neuro evaled, appreciate recs. f/u w/ neuro on dc. c/w PT/OT eval. to rehab Zio patch monitor as OP. and sleep studay as OP. DVT Px: hep sc Full Code. Patient is being discharged to acute rehab with following instruction at the point of discharge: Follow-up with your primary care physician within a week time and likely you will need labs CBC/CMP/magnesium/phosphorus. Your blood pressure was very high and you had a stroke. Your home amlodipine has been resumed, losartan has been added. Measure your blood pressure twice a day, maintain a log to take to your primary care physician for ongoing management/evaluation. Because you had a stroke, you are being discharged on aspirin and Plavix and statin. While on Plavix, avoid omeprazole. After 21st day of aspirin and Plavix, you will need to stop taking Plavix and continue with aspirin alone. As discussed at the bedside multiple times, you have prediabetes [A1c of 5.7]. We encourage that you incorporate lifestyle modification including weight loss/exercise regimen/healthy diet to prevent progression into diabetes. You will need repeat A1c test in about 3 months time, coordinate with your PCP office to set up the test. Follow-up with neurology in about 2 weeks time upon discharge. You will benefit from sleep study as an outpatient and Zio patch monitoring as an outpatient. Coordinate with your PCP to set up the test. Take your medications as prescribed. Please make sure that you are able to get your medications today by calling your pharmacy before you leave the hospital so that your treatment continuity is not broken. Home Health Attestation I certify that this patient is under my care and that I, or a physicians assist ant working with me, had a face to-face encounter that meets the home health drvi-on-uyuc encounter requirements with this patient. The encounter with the patient was in whole, or in part, for the following medical condition, which is the primary reason for home health care (list medical condition): I certify that, based on my findings, the following services are medically necessary home health services: My clinical findings support the need for the above services because: Further, I certify that my clinical findings support that this patient is homebound (i.e. absences from home require considerable and taxing effort and are for medical reasons or evangelical services or infrequently or of short duration when for other reasons) because: Certification for Home Health Services: Based on the above findings, I certify that this patient is confined to the home and needs intermittent usp care, physical therapy and/or speech therapy or continues to need occupational therapy. The patient is under my care, and I have initiated the establishment of the plan of care. This patient will be followed by a physician who will periodically review the plan of care. Total Time Total Time Spent Total Time Spent (In Minutes): 45 Discharge Plan Discharge Items Patient Disposition: Transfer Inpatient Rehab Fac Reason For Visit: HYPERTENSIVE EMERGENCY Discharge Diagnosis: Hypertensive emergency Acute CVA Prediabetes Condition on Discharge: Serious Activity: As commented below Activity Comment: continue with PT/OT at rehab. Non-emergency contact: Primary Care Provider Call non-emergency contact if: you have any medication questions, your symptoms worsen and your temperature is above 101 Follow-up/Referrals: PCP,NO [Primary Care Provider] - Diet: Heart Healthy and Low Sodium (2gm) Addtl Attending Provider Instructions: Follow-up with your primary care physician within a week time and likely you aliza l need labs CBC/CMP/magnesium/phosphorus. Your blood pressure was very high and you had a stroke. Your home amlodipine has been resumed, losartan has been added. Measure your blood pressure twice a day, maintain a log to take to your primary care physician for ongoing management/evaluation. Because you had a stroke, you are being discharged on aspirin and Plavix and statin. While on Plavix, avoid omeprazole. After 21st day of aspirin and Plavix, you will need to stop taking Plavix and continue with aspirin alone. As discussed at the bedside multiple times, you have prediabetes [A1c of 5.7]. We encourage that you incorporate lifestyle modification including weight loss/exercise regimen/healthy diet to prevent progression into diabetes. You will need repeat A1c test in about 3 months time, coordinate with your PCP office to set up the test. Follow-up with neurology in about 2 weeks time upon discharge. You will benefit from sleep study as an outpatient and Zio patch monitoring as a n outpatient. Coordinate with your PCP to set up the test. Take your medications as prescribed. Please make sure that you are able to get your medications today by calling your pharmacy before you leave the hospital so that your treatment continuity is not broken. Pending Studies at Discharge: Yes Stand-Alone Forms: My [employer], Medications to Prevent Stroke Skilled Items Patient informed of condition?: Yes DNR: No Discharge Level of Care: Acute rehab Communicable Disease: No Discharge Prognosis: Stable Lines: None Urinary Catheter: No Medications and DC Order Prescriptions: New clopidogrel 75 mg Tablet 75 mg PO QAM 18 Days Qty: 18 0RF losartan 50 mg Tablet 50 mg PO BID Qty: 60 0RF rosuvastatin 20 mg Tablet 20 mg PO QAM Qty: 30 0RF aspirin 81 mg Tablet,Delayed Release (Dr/Ec) 81 mg PO QAM Qty: 30 0RF docusate sodium 100 mg Capsule 100 mg PO BID PRN (Reason: constipation) Qty: 30 0RF meclizine 25 mg Tablet 25 mg PO TID PRN (Reason: dizziness) Qty: 90 0RF Continued amlodipine 5 mg tablet 5 mg PO QAM Qty: 30 0RF Discontinued Diatomaceous Earth 1 cap PO DAILY Discharge Orders: Discharge Order (Routine); Ordered 08/03/24 Ordered By: Thaddeus Grimm Admission Data Admit Date/Time: 07/30/24 17:32 Attending Provider: Thaddeus Grimm Admit Provider: Erna Olivia Primary Care Provider: PCP,NO Other Providers: Erna Olivia; Jair Alvares; Amanda Jo; Rio Caballero; Amanda Mccann; Barber Youngblood; Ed Trujillo; Timothy Mata; Damián Schneider; Dina Valadez; Rory Ramey; Pepe Blas; Jason Gamez; Ann-Marie Carroll; Marcia Alex; Damián Milton
[2024-08-03 11:35] VITALS: BP 178/100; PULSE 71
== END 2024-08-03 12:36 | DRG 65 ==
LOC: ED 13:20 → 2S 17:32 → SUATTDRO 17:32 → 2S 19:11